=== PATIENT | male | born 1950 | race Caucasian/White ===

== ENCOUNTER 2017-06-24 17:26 | Observation (INO) | payer OTHER ==
[~2017-06-24] VITALS: Ht 188 cm; Wt 123.2 kg
--- NOTE | 2017-06-24 17:51 | EMERGENCY ROOM VISIT NOTE ---
History Report prepared by Rosemarie: Channing La Under the Supervision of: Dr. Gogo Barnes M.D. First contact with patient: 17:33 Chief Complaint: CHEST PAIN Stated Complaint: CHEST PAIN History of Present Illness The patient is a 67 year old medicated diabetic male who presents to the Emergency Room via EMS with complaints of persistent chest pain that started prior to arrival this evening. He says that he was driving to [place] from [place] when he suddenly started having chest pain, feeling as if someone had kicked him in the chest. He states that the pain progressively worsened, so he had to char puller and call an ambulance. He says that he was given 4 baby aspirin in the ambulance. The patient currently as a 5 out of 10 in severity. He denies any radiation of the chest pain. He also denies any sweating, nausea, or leg swelling. The patient adds that it does not hurt when taking a deep breath, and he has not had any recent trouble with exertion. He notes that he has never had anything like this before. The patient says that he has not had any recent illnesses. He states that he had a stress test a year ago. The patient adds that he drove from [place] and back recently. He takes a baby aspirin every night. He notes that he is a non-smoker, and has no personal history of heart problems or blood clots. He is not on any blood thinners. Source of History: patient Onset: Prior to arrival this evening Position: chest Symptom Intensity: 5/10 Quality: other (as if someone kicked him in chest) Associated Symptoms: No diaphoresis, No nausea Note: Associated symptoms: Denies any radiation of pain or leg swelling. Does not hurt to take a deep breath. Review of Systems See HPI for pertinent positives & negatives. A total of 10 systems reviewed and were otherwise negative. Past Medical & Surgical Medical Problems: (1) Lopez esophagus (2) Bipolar 1 disorder (3) Chest pain (4) Diabetes (5) GERD (gastroesophageal reflux disease) (6) HLD (hyperlipidemia) (7) HTN (hypertension) (8) BOY (obstructive sleep apnea) (9) Other chest pain (10) Renal calculi Surgical Problems: (1) H/O lithotripsy (2) History of total left knee replacement (3) History of total right knee replacement (4) History of vasectomy (5) Hx of cholecystectomy (6) S/P cystouretoscopy Family History Unobtainable family history due to adoption Social History Smoking Status: Never Smoker Smokeless Tobacco Use: No Marital Status: Housing Status: lives with family Current/Historical Medications Scheduled Aripiprazole (Abilify), 30 MG PO QAM Aspirin (Aspirin Ec), 81 MG PO DAILY Atorvastatin (Lipitor), 10 MG PO QPM Canagliflozin (Invokana), 100 MG PO QAM Cholecalciferol (Vitamin D3), 2,000 INTER.UNIT PO QAM Cinnamon (Cinnamon), 1,000 MG PO QAM Coenzyme Q10 (Ubidecarenone) (Co Q-10), 200 MG PO QAM Esomeprazole Magnesium (Nexium), 40 MG PO QAM Fenofibrate (Tricor ), 145 MG PO DAILY Insulin Glulisine (Apidra Solostar), 1 DOSE SC AC Lamotrigine (Lamictal), 200 MG PO QAM Liraglutide (Victoza), 1.8 ML SC QPM Magnesium Oxide (Mg Supplement (Magnesium Oxide), 400 MG PO QAM Metformin Hcl (Glucophage), 1,000 MG PO BID Multivitamin (Multivitamin), 1 TAB PO DAILY Psyllium (Fiber), 0.52 GM PO QAM Quinapril Hcl (Accupril), 10 MG PO QAM Venlafaxine Hcl (Effexor Extended Rel), 300 MG PO QPM Scheduled PRN Amoxicillin (Amoxil), 500 MG PO UD PRN for Dental Work Scopolamine (Transderm-Scop), 3 MG TD Q72H PRN for Travel Zolmitriptan (Zomig), 2.5 MG PO UD PRN for Migraine Zolpidem Tartrate (Ambien), 10 MG PO HS PRN for Sleep Allergies Coded Allergies: Iodine (Verified Allergy, Severe, Difficulty breathing, accelerated heart rate and tremors, 06/24/17) Dye Nalbuphine (Verified Allergy, Severe, Loss of blood pressure and convulsions, 06/24/17) Codeine (Verified Allergy, Unknown, Severe nausea and vomiting, 06/24/17) Hylan G-F 20 (Verified Allergy, Unknown, Swelling and pain, 06/24/17) Meperidine (Verified Allergy, Unknown, Severe nausea,vomiting and tremors , 06/24/17) Morphine (Verified Allergy, Unknown, Severe nausea and vomiting, 06/24/17) NSAIDs (Verified Allergy, Unknown, Chronic kidney disease, 06/24/17) Neomycin (Verified Allergy, Unknown, Skin rash and inflammation, 06/24/17) Physical Exam Vital Signs Date Time Temp Pulse Resp B/P (MAP) Pulse Ox O2 Delivery O2 Flow Rate FiO2 06/24/17 19:49 Room Air 06/24/17 18:40 68 18 124/83 99 Room Air 06/24/17 18:30 74 18 124/79 99 Room Air 06/24/17 18:23 68 18 124/79 95 Room Air 06/24/17 17:35 97 Room Air 06/24/17 17:33 67 06/24/17 17:30 97 Room Air 06/24/17 17:30 36.5 67 18 143/95 97 Room Air Physical Exam Vital signs reviewed. General: Well-appearing 67 year old male, in no significant distress. HEENT: No scleral icterus, PERRLA, neck supple. Atraumatic. Cardiovascular: Regular rate and rhythm, no extra sounds. Pulmonary: Clear to auscultation bilaterally, normal work of breathing. Abdomen: Soft, obese, nontender, nondistended, positive bowel sounds. Musculoskeletal: Atraumatic, no peripheral edema. Neurologic: Patient awake alert and oriented x 3, full strength in all 4 extremities. Cranial nerves 2 through 12 grossly intact. Skin: Warm, dry, no rash Medical Decision & Procedures ER Provider Diagnostic Interpretation: X-ray results as stated below per interpretation by me and the radiologist: CHEST ONE VIEW PORTABLE CLINICAL HISTORY: Chest pain. COMPARISON STUDY: No previous studies for comparison. FINDINGS: Note is made of lordotic positioning on this exam. There is moderate elevation/eventration of the right hemidiaphragm. Linear left basilar opacity is suggestive of atelectasis. There is no consolidation to suggest pneumonia. Pulmonary vascularity is normal. Cardiomediastinal silhouette is normal. Suspected calcified AP window lymph node is noted. IMPRESSION: 1. No acute cardiopulmonary findings. 2. Moderate elevation/eventration of the right hemidiaphragm. Electronically signed by: Joseph Prabhakar M.D. 06/24/2017 6:15 PM Dictated Date/Time: 06/24/2017 6:14 PM Laboratory Results 06/24/17 17:09 06/24/17 18:48 Test 06/24/17 17:09 06/24/17 17:54 06/24/17 18:48 Anion Gap 9.0 mmol/L (3-11) Est Creatinine Clear Calc Drug Dose 79.4 ml/min Estimated GFR () 67.1 Estimated GFR (Non- 57.9 BUN/Creatinine Ratio 19.9 (10-20) Calcium Level 9.2 mg/dl (8.5-10.1) Total Bilirubin 0.4 mg/dl (0.2-1) Alanine Aminotransferase (ALT/SGPT) 47 U/L (12-78) Alkaline Phosphatase 62 U/L (45-117) Creatine Kinase MB 11.4 ng/ml (0.5-3.6) Creatine Kinase MB Ratio (0-3.0) Total Protein 8.2 gm/dl (6.4-8.2) Albumin 4.1 gm/dl (3.4-5.0) Lipase 319 U/L (73-393) Bedside Troponin I < 0.030 ng/ml (0-0.045) Activated Partial Thromboplast Time 30.6 SECONDS (21.0-31.0) Partial Thromboplastin Ratio 1.2 Direct Bilirubin < 0.1 mg/dl (0-0.2) Aspartate Amino Transf (AST/SGOT) 34 U/L (15-37) Laboratory results per my review. Medications Administered Medications (Trade) Dose Ordered Sig/Perla Route Start Time Stop Time Status Last Admin Dose Admin Nitroglycerin (Nitrostat Tab) 0.4 mg Q5M PRN SL 06/24/17 17:45 06/24/17 21:37 DC 06/24/17 18:40 0.4 MG ECG Indication: chest pain Rate (beats per minute): 66 Rhythm: normal sinus Findings: no ectopy, other (poor quality baseline for interpretation, T-wave flattening in inferior leads) ED Course 1739: Past medical records reviewed. The patient was evaluated in room C12B. A complete history and physical examination was performed. 1744: Ordered Nitrostat Tab 0.4 mg SL PRN. 1911: I discussed the patient with Kalani Jones - she will evaluate the patient for further treatment. 1914: Upon reevaluation, the patient is resting comfortably. I discussed laboratory and radiographic results with him. He verbalized agreement of the treatment plan. The patient will be evaluated for further management and care. Medical Decision Differential diagnosis: Acute coronary syndrome, pulmonary embolus, aortic dissection, musculoskeletal pain, pneumonia, pleural effusion, pneumothorax This patient was evaluated and appeared to be in no significant distress. IV access was obtained and laboratory work was drawn. Patient was placed on the production checker and found to be in a normal sinus rhythm. He was given aspirin en route. Patient was given a nitroglycerin trial with minimal improvement. Chest x-ray was performed and is negative for acute infiltrate or failure. EKG reveals nonspecific T wave flattening. Cardiac enzymes are normal. Given the patient's history of hypertension, hypercholesterolemia and diabetes, the patient will be evaluated by the hospitalist service for further management. Patient and family are aware of the plan and agree. Medication Reconcilliation Current Medication List: was personally reviewed by me Blood Pressure Screening Patient's blood pressure: Elevated blood pressure Referred to hospitalist. Consults Time Called: 1909 Consulting Physician: Kalani Jones Returned Call: 1911 I discussed the patient with Kalani Jones - she will evaluate the patient for further treatment. Impression Primary Impression: Substernal chest pain Scribe Attestation The scribe's documentation has been prepared under my direction and personally reviewed by me in its entirety. I confirm that the note above accurately reflects all work, treatment, procedures, and medical decision making performed by me. Departure Information Dispostion Being Evaluated By Hospitalist Patient Instructions My [facility]
[2017-06-24 17:57] LABS: BASO % 0.2 %; BASO ABS # 0.02 K/uL (0-0.2); COMPLETE YES; EOS % 1.6 %; HEMATOCRIT 43.8 % (42-52); IG% 0.3 %; LYMPH % 28.8 %; LYMPH ABS # 2.66 K/uL (1.2-3.4); MEAN CELL VOLUME 89.4 fL (80-100); MEAN CORPUSCULAR HEMOGLOBIN 30.6 pg (25-34); MEAN CORPUSCULAR HGB CONC 34.2 g/dl (32-36); MEAN PLATELET VOLUME 10.2 fL (7.4-10.4); MONO % 6.9 %; NEUT % 62.2 %; PLATELET COUNT 215 K/uL (130-400); WHITE BLOOD COUNT 9.23 K/uL (4.8-10.8)
[2017-06-24] MEDS ORDERED: LIRA18IN SC (18:14)
[2017-06-24] MEDS ORDERED: ARIP30TA3 PO (18:14)
[2017-06-24] MEDS ORDERED: ASPI81TA28 PO (18:14)
[2017-06-24] MEDS ORDERED: AMOX500C3 PO (18:14)
[2017-06-24] MEDS ORDERED: FENO145T26 PO (18:14)
[2017-06-24] MEDS ORDERED: METF-384 PO (18:14)
[2017-06-24] MEDS ORDERED: PSYL1CAP4 PO (18:14)
[2017-06-24] MEDS ORDERED: LAMO200T38 PO (18:14)
[2017-06-24] MEDS ORDERED: MAGN1TAB19 PO (18:14)
[2017-06-24] MEDS ORDERED: NXM/40 PO (18:14)
[2017-06-24] MEDS ORDERED: ZOLP10TA PO (18:14)
[2017-06-24] MEDS ORDERED: APDI SC (18:14)
[2017-06-24] MEDS ORDERED: CANA1TAB PO (18:14)
[2017-06-24] MEDS ORDERED: ATOR10TA88 PO (18:14)
[2017-06-24] MEDS ORDERED: [UNRECOGNIZED DRUG - CODE] PO (18:14)
[2017-06-24] MEDS ORDERED: COEN1CAP37 PO (18:14)
[2017-06-24] MEDS ORDERED: QUIN10TA25 PO (18:14)
[2017-06-24] MEDS ORDERED: SCOP1DIS14 TD (18:14)
[2017-06-24] MEDS ORDERED: VENL150C56 PO (18:14)
[2017-06-24] MEDS ORDERED: CINN500T PO (18:14)
[2017-06-24] MEDS ORDERED: CHOL2000 PO (18:14)
[2017-06-24] MEDS ORDERED: MULT-506 PO (18:14)
--- NOTE | 2017-06-24 18:17 | DIAGNOSTIC IMAGING REPORT ---
CHEST ONE VIEW PORTABLE CLINICAL HISTORY: Chest pain. COMPARISON STUDY: No previous studies for comparison. FINDINGS: Note is made of lordotic positioning on this exam. There is moderate elevation/eventration of the right hemidiaphragm. Linear left basilar opacity is suggestive of atelectasis. There is no consolidation to suggest pneumonia. Pulmonary vascularity is normal. Cardiomediastinal silhouette is normal. Suspected calcified AP window lymph node is noted. IMPRESSION: 1. No acute cardiopulmonary findings. 2. Moderate elevation/eventration of the right hemidiaphragm. Electronically signed by: Joseph Prabhakar M.D. 06/24/2017 6:15 PM Dictated Date/Time: 06/24/2017 6:14 PM
[2017-06-24] MEDS: NITROGLYCERIN 0.4 MG SL PER TAB CHARGE SL PRN ×2 (18:30→18:40)
[2017-06-24 18:33] LABS: ALKALINE PHOSPHATASE 62 U/L (45-117); ALT/SGPT 47 U/L (12-78); BLOOD UREA NITROGEN 25 mg/dl (7-18); BUN/CREATININE RATIO 19.9 (10-20); CALCIUM 9.2 mg/dl (8.5-10.1); CARBON DIOXIDE 26 mmol/L (21-32); CHLORIDE 104 mmol/L (98-107); CREATININE 1.28 mg/dl (0.60-1.40); GLUCOSE 83 mg/dl (70-99); SODIUM 139 mmol/L (136-145)
[2017-06-24 19:36] LABS: POTASSIUM 4.2 mmol/L (3.5-5.1)
[2017-06-24 19:44] LABS: AST/SGOT 34 U/L (15-37); MAGNESIUM 1.4 mg/dl (1.8-2.4)
[2017-06-24 19:49] VITALS: Ht 188 cm; Wt 123.2 kg
[2017-06-24 20:19] LABS: PARTIAL THROMBOPLASTIN RATIO 1.2
[2017-06-24] MEDS ORDERED: TRAMADOL HCL 50 MG TAB PO ONE (20:43)
[2017-06-24] MEDS ORDERED: ACETAMINOPHEN 325 MG TAB PO PRN (20:45)
[2017-06-24] MEDS ORDERED: DEXTROSE 50% 50 ML SYR IV PRN (20:45)
[2017-06-24] MEDS ORDERED: TRAMADOL HCL 50 MG TAB PO PRN (20:45)
[2017-06-24] MEDS ORDERED: ZOLPIDEM TARTRATE 10 MG TAB PO PRN (20:45)
[2017-06-24] MEDS ORDERED: HYDROmorphone INJ 0.5 MG/0.5 ML SYR IV PRN (20:45)
[2017-06-24] MEDS ORDERED: ONDANSETRON INJ 2 MG/ML 2 ML VIAL IV PRN (20:45)
[2017-06-24] MEDS ORDERED: GLUCOSE 10 TABS/TUBE PO PRN (20:45)
[2017-06-24] MEDS ORDERED: GLUCAGON FOR INJ 1 MG VIAL SQ PRN (20:45)
[2017-06-24] MEDS ORDERED: LORAZEPAM 2 MG/ML 1 ML VIAL IV PRN (20:45)
[2017-06-24] MEDS ORDERED: GLUCOSE 40% GEL 15 GM TUBE PO PRN (20:45)
[2017-06-24] MEDS ORDERED: ATORVASTATIN 10 MG TAB PO SCH (21:00)
[2017-06-24] MEDS ORDERED: NURSING DECISION MEDICATION ORDER SCH (21:00)
[2017-06-24] MEDS ORDERED: VENLAFAXINE HCL XR 150 MG CAPXR PO SCH (21:00)
--- NOTE | 2017-06-24 21:06 | History and Physical ---
History & Physical Date & Time of Service: Jun 24, 2017 ~ 19:30 Chief Complaint: Chest Pain Primary Care Physician: Susan Malik D.O. History of Present Illness 67 year old male who presents to the ED with chest pain. Patient reports he was driving when he had a sudden onset of midsternal chest pain that favored the right side. He reports the pain was moderately severe rating it # 5/10. He reports the pain persisted so he pulled over and called for EMS. Patient denies any associated shortness of breath, diaphoresis, nausea, palpitations, or lightheadedness. He has received two SL nitro in the ED and the pain is unchanged. He reports he has been feeling well recently. He does report two somewhat lengthy car rides last week. He denies abdominal pain, vomiting, or diarrhea. No fevers or chills. He denies urinary symptoms. In the ED, patient's initial troponin is negative and EKG does not show any acute ST changes. He was given 4 baby ASA by EMS and has been given 2 SL nitro in the ED. Past Medical/Surgical History Medical Problems: (1) Lopez esophagus Status: Chronic (2) Bipolar 1 disorder Status: Chronic (3) Diabetes Status: Chronic (4) GERD (gastroesophageal reflux disease) Status: Chronic (5) HLD (hyperlipidemia) Status: Chronic (6) HTN (hypertension) Status: Chronic (7) BOY (obstructive sleep apnea) Status: Chronic (8) Renal calculi Status: Chronic Surgical Problems: (1) H/O lithotripsy Status: Chronic (2) History of total left knee replacement Status: Chronic (3) History of total right knee replacement Status: Chronic (4) History of vasectomy Status: Chronic (5) Hx of cholecystectomy Status: Chronic (6) S/P cystouretoscopy Status: Chronic Family History Unobtainable family history due to adoption Social History Smoking Status: Never Smoker Alcohol Use: none Marital Status: Housing status: lives with family Occupational Status: retired Allergies Coded Allergies: Iodine (Verified Allergy, Severe, Difficulty breathing, accelerated heart rate and tremors, 06/24/17) Dye Nalbuphine (Verified Allergy, Severe, Loss of blood pressure and convulsions, 06/24/17) Codeine (Verified Allergy, Unknown, Severe nausea and vomiting, 06/24/17) Hylan G-F 20 (Verified Allergy, Unknown, Swelling and pain, 06/24/17) Meperidine (Verified Allergy, Unknown, Severe nausea,vomiting and tremors , 06/24/17) Morphine (Verified Allergy, Unknown, Severe nausea and vomiting, 06/24/17) NSAIDs (Verified Allergy, Unknown, Chronic kidney disease, 06/24/17) Neomycin (Verified Allergy, Unknown, Skin rash and inflammation, 06/24/17) Home Medications Scheduled Aripiprazole (Abilify), 30 MG PO QAM Aspirin (Aspirin Ec), 81 MG PO DAILY Atorvastatin (Lipitor), 10 MG PO QPM Canagliflozin (Invokana), 100 MG PO QAM Cholecalciferol (Vitamin D3), 2,000 INTER.UNIT PO QAM Cinnamon (Cinnamon), 1,000 MG PO QAM Coenzyme Q10 (Ubidecarenone) (Co Q-10), 200 MG PO QAM Esomeprazole Magnesium (Nexium), 40 MG PO QAM Fenofibrate (Tricor ), 145 MG PO DAILY Insulin Glulisine (Apidra Solostar), 1 DOSE SC AC Lamotrigine (Lamictal), 200 MG PO QAM Liraglutide (Victoza), 1.8 ML SC QPM Magnesium Oxide (Mg Supplement (Magnesium Oxide), 400 MG PO QAM Metformin Hcl (Glucophage), 1,000 MG PO BID Multivitamin (Multivitamin), 1 TAB PO DAILY Psyllium (Fiber), 0.52 GM PO QAM Quinapril Hcl (Accupril), 10 MG PO QAM Venlafaxine Hcl (Effexor Extended Rel), 300 MG PO QPM Scheduled PRN Amoxicillin (Amoxil), 500 MG PO UD PRN for Dental Work Scopolamine (Transderm-Scop), 3 MG TD Q72H PRN for Travel Zolmitriptan (Zomig), 2.5 MG PO UD PRN for Migraine Zolpidem Tartrate (Ambien), 10 MG PO HS PRN for Sleep Review of Systems ROS per HPI, all other systems reviewed and negative Physical Exam Vital Signs Date Time Temp Pulse Resp B/P (MAP) Pulse Ox O2 Delivery O2 Flow Rate FiO2 06/24/17 19:49 Room Air 06/24/17 18:40 68 18 124/83 99 Room Air 06/24/17 18:30 74 18 124/79 99 Room Air 06/24/17 18:23 68 18 124/79 95 Room Air 06/24/17 17:35 97 Room Air 06/24/17 17:33 67 06/24/17 17:30 97 Room Air 06/24/17 17:30 36.5 67 18 143/95 97 Room Air General Appearance: no apparent distress, + obese Head: normocephalic, atraumatic Eyes: normal inspection, EOMI, sclerae normal ENT: hearing grossly normal, + pertinent finding (moist mucous membranes) Neck: supple, no JVD, trachea midline Respiratory/Chest: lungs clear, normal breath sounds, no respiratory distress, + pertinent finding (tenderness along the right side of the sternum at ribs 3/4 ) Cardiovascular: regular rate, rhythm, no edema, normal peripheral pulses Abdomen/GI: normal bowel sounds, non tender, soft, no organomegaly Extremities/Musculoskelatal: normal inspection, no calf tenderness, normal capillary refill Neurologic/Psych: no motor/sensory deficits, alert, normal mood/affect, oriented x 3 Skin: normal color, warm/dry Diagnostics Laboratory Results Results Past 24 Hours Test 06/24/17 17:09 06/24/17 17:54 06/24/17 18:48 06/24/17 19:49 Range/Units White Blood Count 9.23 4.8-10.8 K/uL Red Blood Count 4.90 4.7-6.1 M/uL Hemoglobin 15.0 14.0-18.0 g/dL Hematocrit 43.8 42-52 % Mean Corpuscular Volume 89.4 80-100 fL Mean Corpuscular Hemoglobin 30.6 25-34 pg Mean Corpuscular Hemoglobin Concent 34.2 32-36 g/dl Platelet Count 215 130-400 K/uL Mean Platelet Volume 10.2 7.4-10.4 fL Neutrophils (%) (Auto) 62.2 % Lymphocytes (%) (Auto) 28.8 % Monocytes (%) (Auto) 6.9 % Eosinophils (%) (Auto) 1.6 % Basophils (%) (Auto) 0.2 % Neutrophils # (Auto) 5.73 1.4-6.5 K/uL Lymphocytes # (Auto) 2.66 1.2-3.4 K/uL Monocytes # (Auto) 0.64 0.11-0.59 K/uL Eosinophils # (Auto) 0.15 0-0.5 K/uL Basophils # (Auto) 0.02 0-0.2 K/uL RDW Standard Deviation 43.0 36.4-46.3 fL RDW Coefficient of Variation 13.1 11.5-14.5 % Immature Granulocyte % (Auto) 0.3 % Immature Granulocyte # (Auto) 0.03 0.00-0.02 K/uL Sodium Level 139 136-145 mmol/L Potassium Level 4.2 3.5-5.1 mmol/L Chloride Level 104 98-107 mmol/L Carbon Dioxide Level 26 21-32 mmol/L Anion Gap 9.0 3-11 mmol/L Blood Urea Nitrogen 25 7-18 mg/dl Creatinine 1.28 0.60-1.40 mg/dl Est Creatinine Clear Calc Drug Dose 79.4 ml/min Estimated GFR () 67.1 Estimated GFR (Non- 57.9 BUN/Creatinine Ratio 19.9 10-20 Random Glucose 83 70-99 mg/dl Calcium Level 9.2 8.5-10.1 mg/dl Magnesium Level 1.4 1.8-2.4 mg/dl Total Bilirubin 0.4 0.2-1 mg/dl Direct Bilirubin < 0.1 0-0.2 mg/dl Aspartate Amino Transf (AST/SGOT) 34 15-37 U/L Alanine Aminotransferase (ALT/SGPT) 47 12-78 U/L Alkaline Phosphatase 62 45-117 U/L Total Creatine Kinase 682 39-308 U/L Creatine Kinase MB 11.4 0.5-3.6 ng/ml Creatine Kinase MB Ratio 0-3.0 Total Protein 8.2 6.4-8.2 gm/dl Albumin 4.1 3.4-5.0 gm/dl Lipase 319 73-393 U/L Bedside Troponin I < 0.030 0-0.045 ng/ml Test 06/24/17 19:55 Range/Units Diagnostic Radiology CXR IMPRESSION: 1. No acute cardiopulmonary findings. 2. Moderate elevation/eventration of the right hemidiaphragm. Impression Assessment and Plan CHEST PAIN - admit to tele - patient presenting with sudden onset of midsternal chest pain that favored the right side; in the ED, pain was unchanged with nitro - initial troponin and CKMB negative and EKG without acute ST changes; D. Dimer negative - pain seems to be musculoskeletal in nature, ? costochondritis; however patient does have risk factors for CAD: HTN, DM, HLD, obesity - continue to cycle cardiac enzymes - PRN nitro and EKG with further chest pain - continue ASA and statin DM - per patient, A1C 9.2 02/2017 - hold oral agents and Victoza while hospitalized; will utilize SSI HTN - BP controlled, continue quinapril HLD - continue statin and fenofibrate GERD - continue PPI BIPOLAR - continue home meds - Abilify, Lamictal, and Effexor BOY - CPAP as per home settings DVT PROPHYLAXIS - SQ Lovenox DISPO - The patient will be placed as observation status for now until further work up is complete. Please see Dr. Lerma's addendum for further assessment and plan. Advanced Directives Existing Living Will: Yes Existing Power of Curtain Supervisor: Yes VTE Prophylaxis VTE Risk Assessment Done? Y/N: Yes Risk Level: Moderate Assessment/Plan IM ATTENDING : Patient seen and examined. History obtained from patient and records. Preceding documentation by TERESITA Schwartz reviewed. In addition, d-dimer was normal. FINAL ASSESSMENT AND PLAN as follows : 1. Atypical chest pain likely musculoskeletal with reproducible tenderness 2. Hypertension, stable 3. DM2, insulin requiring, suboptimal control as of recent outpatient hemoglobin A1c as per patient 4. hyperlipidemia on statin therapy. Observation. PCU Exercise stress test in the morning if next troponin normal. Basal insulin, ISS BG goal 140-180. Carb count coverage indicated for suboptimal blood sugar control. DVT prophylaxis with Lovenox subQ. Full code.
[2017-06-24 21:11] VITALS: BP 119/70; PULSE 74; TEMP 36.8; O2SAT 93
[2017-06-24] MEDS ORDERED: SODIUM CHLORIDE 0.9% 1000ML 1,000 ML IV SCH (21:30)
[2017-06-24] MEDS: MAGNESIUM SULFATE 1GM / D5W 1 GM in PREMIXED IN D5W 100 ML IV SCH ×2 (21:52→23:49)
[2017-06-24] MEDS: INSULIN ASPART 100 UNITS/ML 3 ML PEN SC SCH (21:57)
[2017-06-24 22:09] LABS: PROTHROMBIN TIME (PATIENT) 10.9 SECONDS (9.0-12.0)
[2017-06-24 23:00] VITALS: BP 127/64; PULSE 62; TEMP 36.7; O2SAT 95
[2017-06-24] MEDS ORDERED: IV FLUIDS COMPLETED PRN (23:30)
[2017-06-25 00:05] VITALS: O2SAT 98
[2017-06-25 04:05] VITALS: O2SAT 98
[2017-06-25 04:27] LABS: BASO % 0.1 %; BASO ABS # 0.01 K/uL (0-0.2); COMPLETE YES; EOS % 1.9 %; HEMATOCRIT 42.9 % (42-52); IG% 0.3 %; LYMPH % 33.5 %; LYMPH ABS # 2.62 K/uL (1.2-3.4); MEAN CELL VOLUME 89.7 fL (80-100); MEAN CORPUSCULAR HEMOGLOBIN 30.3 pg (25-34); MEAN CORPUSCULAR HGB CONC 33.8 g/dl (32-36); MEAN PLATELET VOLUME 9.4 fL (7.4-10.4); MONO % 6.4 %; NEUT % 57.8 %; PLATELET COUNT 174 K/uL (130-400); RED BLOOD COUNT 4.78 M/uL (4.7-6.1); WHITE BLOOD COUNT 7.81 K/uL (4.8-10.8)
[2017-06-25 04:39] VITALS: BP 128/77; PULSE 63; TEMP 36.5; O2SAT 95
[2017-06-25 04:51] LABS: MAGNESIUM 1.8 mg/dl (1.8-2.4)
[2017-06-25] MEDS: INSULIN ASPART 100 UNITS/ML 3 ML PEN SC SCH (06:00)
--- NOTE | 2017-06-25 07:01 | HISTORY & PHYSICAL EXAMINATION ---
DATE OF ADMISSION: 06/24/2017 IM ATTENDING : Patient seen and examined. History obtained from patient and records. Preceding documentation by TERESITA Schwartz reviewed. In addition, d-dimer was normal. FINAL ASSESSMENT AND PLAN as follows : 1. Atypical chest pain likely musculoskeletal with reproducible tenderness 2. Hypertension, stable 3. DM2, insulin requiring, suboptimal control as of recent outpatient hemoglobin A1c as per patient 4. hyperlipidemia on statin therapy. Observation. PCU Exercise stress test in the morning if next troponin normal. Basal insulin, ISS BG goal 140-180. Carb count coverage indicated for suboptimal blood sugar control. DVT prophylaxis with Lovenox subQ. Full code. MTDD
[2017-06-25 07:12] VITALS: BP 134/87; PULSE 67; TEMP 36.6; O2SAT 94
[2017-06-25] MEDS ORDERED: ASPIRIN 81 MG ECTAB PO SCH (09:00)
[2017-06-25] MEDS ORDERED: FENOFIBRATE 145 MG TAB PO SCH (09:00)
[2017-06-25] MEDS ORDERED: MULTIVITAMIN TAB PO SCH (09:00)
[2017-06-25] MEDS ORDERED: ARIPIprazole TAB 15 MG TAB PO SCH (09:00)
[2017-06-25] MEDS ORDERED: ENOXAPARIN 40 MG/0.4 ML SYR SC SCH (09:00)
[2017-06-25] MEDS ORDERED: ENALAPRIL MALEATE 10 MG TAB PO SCH (09:00)
[2017-06-25] MEDS ORDERED: INSULIN ASPART 100 UNITS/ML 3 ML PEN SC SCH (11:00)
[2017-06-25] MEDS ORDERED: NURSING VERBAL MED ORDER ONE ×2 (11:15→12:00)
[2017-06-25 11:16] VITALS: BP 121/76; PULSE 77; TEMP 36.7; O2SAT 96
--- NOTE | 2017-06-25 13:25 | Discharge Instructions ---
Discharge Instructions Date of Service Jun 25, 2017. Admission Reason for Admission: Other Chest Pain Discharge Discharge Diagnosis / Problem: ATYPICAL CHEST PAIN /NEGATIVE CARDIAC STRESS TEST Discharge Goals Goal(s): Improve disease control, Diagnostic testing, Therapeutic intervention Activity Recommendations Activity Limitations: resume your previous activity Driving or Machine Use: no limitations . Instructions / Follow-Up Instructions / Follow-Up FOLLOW UP WITH FAMILY PHYSICIAN IN A WEEK Current Hospital Diet Patient's current hospital diet: Diabetes Type 2 Diet, AHA Diet (Heart Healthy) Discharge Diet Recommended Diet: AHA Diet (Heart Healthy) Pending Studies Studies pending at discharge: no Medical Emergencies . Who to Call and When: Medical Emergencies: If at any time you feel your situation is an emergency, please call 911 immediately. . Non-Emergent Contact Non-Emergency issues call your: Primary Care Provider . . "Provider Documentation" section prepared by Maureen Casey. . VTE Core Measure Inpt VTE Proph given/why not?: Reggie Toribio, SCD's
[2017-06-25 14:50] VITALS: BP 121/76; PULSE 77; TEMP 36.7; O2SAT 96
--- NOTE | 2017-06-25 15:01 | EXERCISE STRESS ECHO ---
*NOTICE TO RECEIVING CONSTITUTION PARTY AGENCY This information is strictly Confidential and protected under [place] law. [place] law prohibits you from making any further disclosure of this information unless further disclosure is expressly permitted by the written consent of the person to whom it pertains or is authorized by law. A general authorization for the release of medical or other information is not sufficient for this purpose. Hospital accepts no responsibility if the information is made available to any other person, INCLUDING THE PATIENT. Interpretation Summary * Name: CLOVIS AREVALO Study Date: 06/25/2017 08:31 AM BP: 129/90 mmHg * Patient Location: [facility]\S\N278\S\2 HR: 68 * : 1950 (M/d/yyyy) Gender: Male Height: 74 in * Age: 67 yrs Ethnicity: [place] Weight: 273 lb * Ordering Physician: Allan Lerma * Referring Physician: Self, Referred * Performed By: Lara Moreno RCS * * Reason For Study: Chest Pain * BSA: 2.5 m2 * STRESS STUDY: Normal exercise stress echocardiogram. No echocardiographic or ECG evidence of myocardial ischemia having achieved heart rate adequate for diagnostic purposes. * -- Conclusions -- * STRESS STUDY: Normal exercise stress echocardiogram. No echocardiographic or ECG evidence of myocardial ischemia having achieved heart rate adequate for diagnostic purposes. Procedure Details * ECHOEX, CPT #[id number] * ECHO COLOR FLOW, CPT #[id number] * ECHO DOPPLER, CPT #[id number] Left Ventricle * The left ventricle is normal in size. * There is borderline concentric left ventricular hypertrophy. * Ejection Fraction = 55-60%. * Left ventricular systolic function is normal. * The left ventricular wall motion is normal at rest. Right Ventricle * The right ventricle is normal size. * The right ventricular systolic function is normal. Atria * The left atrial size is normal. * Right atrial size is normal. * There is no evidence of atrial septal defect, but resolution does not allow assessment for a patent foramen ovale. Mitral Valve * The mitral valve anatomy is normal. * Significant mitral regurgitation is absent. Tricuspid Valve * The tricuspid valve anatomy is normal. * Significant tricuspid regurgitation is absent. Aortic Valve * The aortic valve is tricuspid. The leaflet thickness if normal. There is no aortic stenosis, and no significant insufficiency. * Aortic stenosis is absent. * There is no significant aortic regurgitation. Pulmonic Valve * The pulmonic valve is not well visualized. Great Vessels * The aortic root and proximal ascending aorta are normal sized. Pericardium * There is no pericardial effusion. Stress Parameters * Baseline ECG was essentially normal. No symptoms were noted. * The stress ECG response was normal * Stress ECG: No ST changes. No arrhythmias. * The stress portion of this study was personally supervised by the undersigned interpreting physician. * Rest heart rate was '68' BPM. * Rest blood pressure was '129/90' * Maximum heart rate achieved was 137 bpm. * Maximum heart rate was 88 % of maximum age-predicted heart rate. * Maximum blood pressure was '225/79' * Total exercise time was '5:47' * Maximum exercise MET level achieved was '7.0' METS * Maximum treadmill speed was '2.5' miles per hour. * Maximum treadmill elevation was '12'% grade. * Exercise was terminated due to 'achieving target heart rate' MMode 2D Measurements and Calculations IVSd 1.1 cm IVSs 1.3 cm LVIDd 4.3 cm LVIDs 2.7 cm LVPWd 1.0 cm LVPWs 1.3 cm IVS/LVPW 1.1 FS 37.6 % EDV(Teich) 83.6 ml ESV(Teich) 26.8 ml EF(Teich) 68.0 % EDV(cubed) 80.1 ml ESV(cubed) 19.5 ml EF(cubed) 75.7 % % IVS thick 11.3 % % LVPW thick 20.2 % LV mass(C)d 161.9 grams LV mass(C)dI 65.3 grams/m\S\2 LV mass(C)s 102.3 grams LV mass(C)sI 41.2 grams/m\S\2 SV(Teich) 56.8 ml SI(Teich) 22.9 ml/m\S\2 SV(cubed) 60.7 ml SI(cubed) 24.5 ml/m\S\2 Ao root diam 4.4 cm Ao root area 15.2 cm\S\2 ACS 1.7 cm LA dimension 3.5 cm asc Aorta Diam 3.3 cm LA/Ao 0.80 EDV(MOD-sp4) 85.0 ml ESV(MOD-sp4) 42.0 ml EF(MOD-sp4) 50.6 % EDV(MOD-sp2) 103.0 ml ESV(MOD-sp2) 48.0 ml EF(MOD-sp2) 53.4 % SV(MOD-sp4) 43.0 ml SI(MOD-sp4) 17.3 ml/m\S\2 SV(MOD-sp2) 55.0 ml SI(MOD-sp2) 22.2 ml/m\S\2 Doppler Measurements and Calculations MV E max jaqueline 75.5 cm/sec MV A max jaqueline 95.4 cm/sec MV E/A 0.79 MV P1/2t max jaqueline 85.0 cm/sec MV P1/2t 120.4 msec MVA(P1/2t) 1.8 cm\S\2 MV dec slope 206.7 cm/sec\S\2 MV dec time 0.25 sec Ao V2 max 116.5 cm/sec Ao max PG 5.4 mmHg Ao max PG (full) -0.14 mmHg LV V1 max PG 5.6 mmHg LV V1 max 117.9 cm/sec PA V2 max 107.0 cm/sec PA max PG 4.6 mmHg TR max jaqueline 210.8 cm/sec
--- NOTE | 2017-06-25 17:35 | Progress Note ---
Internal Med Progress Note Date of Service: Jun 25, 2017. Provider Documentation: SUBJECTIVE: has minimum pain 2/10 on rt chest wall -reproducible no SOB , no PEREZ returned from cardiac stress -negative for stress induced ischemia pain on rt chest wall possible due to Costochondritis -recommend over the counter NSAID's -Motrin to be taken on full stomach hot/cold compression expect spontaneous resolution in next 2-3 days stable to be discharged home today OBJECTIVE: Vital Signs-as noted below Exam: General-no sign of distress , Eyes-sclera non icteric . PERRLA/EOMI ENT-normal exam Neck-no thyromegaly , no carotid bruit , trachea midline Lungs-CTA, no wheeze or rales Heart-regular S1/S2 Abdomen-soft, non tender Extremities-no lower ext edema Neuro-AAO x3, no focal deficit Lab data as noted below. ASSESSMENT & PLAN: CHEST PAIN ; atypical for angina rt sided, reproducible on palpation cardiac stress test negative for stress induced angina possible due to Costochondritis -recommend over the counter NSAID's -Motrin to be taken on full stomach hot/cold compression expect spontaneous resolution in next 2-3 days stable to be discharged home today Family physician follow up in a week TYPE 2 DM : hold oral meds cont insulin sliding scale HTN : stable BIPOLAR MOOD DISORDER cont out meds DVT PROPHYLAXIS sub q heparin DISPOSITION discharge home today Vital Signs: Date Time Temp Pulse Resp B/P (MAP) Pulse Ox O2 Delivery O2 Flow Rate FiO2 06/25/17 14:50 36.7 77 20 96 Room Air 06/25/17 12:00 Room Air 06/25/17 11:16 36.7 77 20 121/76 (91) 96 Room Air 06/25/17 08:00 Room Air 06/25/17 07:12 36.6 67 20 134/87 (103) 94 Room Air 06/25/17 04:39 36.5 63 16 128/77 (94) 95 Room Air 06/25/17 04:05 98 Room Air 06/25/17 00:05 98 Room Air 06/24/17 23:00 36.7 62 18 127/64 (85) 95 Room Air 06/24/17 21:11 36.8 74 18 119/70 (86) 93 Room Air 06/24/17 20:19 84 18 120/79 98 Room Air 06/24/17 19:49 Room Air 06/24/17 18:40 68 18 124/83 99 Room Air 06/24/17 18:30 74 18 124/79 99 Room Air 06/24/17 18:23 68 18 124/79 95 Room Air Lab Results: Results Past 24 Hours Test 06/24/17 17:54 06/24/17 18:48 06/24/17 20:03 06/24/17 21:21 Range/Units Bedside Troponin I < 0.030 0-0.045 ng/ml Activated Partial Thromboplast Time 30.6 21.0-31.0 SECONDS Partial Thromboplastin Ratio 1.2 Potassium Level 4.2 3.5-5.1 mmol/L Magnesium Level 1.4 1.8-2.4 mg/dl Direct Bilirubin < 0.1 0-0.2 mg/dl Aspartate Amino Transf (AST/SGOT) 34 15-37 U/L Total Creatine Kinase 682 673 39-308 U/L Prothrombin Time 10.9 9.0-12.0 SECONDS Prothromb Time International Ratio 1.0 0.9-1.1 D-Dimer 270 0-500 ug/L FEU Troponin I < 0.015 0-0.045 ng/ml Bedside Glucose 144 70-99 mg/dl Test 06/25/17 04:16 06/25/17 06:02 06/25/17 07:22 06/25/17 11:31 Range/Units White Blood Count 7.81 4.8-10.8 K/uL Red Blood Count 4.78 4.7-6.1 M/uL Hemoglobin 14.5 14.0-18.0 g/dL Hematocrit 42.9 42-52 % Mean Corpuscular Volume 89.7 80-100 fL Mean Corpuscular Hemoglobin 30.3 25-34 pg Mean Corpuscular Hemoglobin Concent 33.8 32-36 g/dl Platelet Count 174 130-400 K/uL Mean Platelet Volume 9.4 7.4-10.4 fL Neutrophils (%) (Auto) 57.8 % Lymphocytes (%) (Auto) 33.5 % Monocytes (%) (Auto) 6.4 % Eosinophils (%) (Auto) 1.9 % Basophils (%) (Auto) 0.1 % Neutrophils # (Auto) 4.51 1.4-6.5 K/uL Lymphocytes # (Auto) 2.62 1.2-3.4 K/uL Monocytes # (Auto) 0.50 0.11-0.59 K/uL Eosinophils # (Auto) 0.15 0-0.5 K/uL Basophils # (Auto) 0.01 0-0.2 K/uL RDW Standard Deviation 42.9 36.4-46.3 fL RDW Coefficient of Variation 13.1 11.5-14.5 % Immature Granulocyte % (Auto) 0.3 % Immature Granulocyte # (Auto) 0.02 0.00-0.02 K/uL Magnesium Level 1.8 1.8-2.4 mg/dl Troponin I < 0.015 0-0.045 ng/ml Bedside Glucose 122 121 160 70-99 mg/dl
--- NOTE | 2017-06-25 17:42 | Discharge Summary ---
Discharge Summary Date of Service Jun 25, 2017. Discharge Summary Admission Date: Jun 24, 2017 at 19:57 Discharge Date: Jun 25, 2017 Discharge Disposition: Home Principal Diagnosis: ATYPICAL CHEST PAIN /NEGATIVE CARDIAC STRESS TEST Consultations: CARDIAC STRESS TEST : The left ventricle is normal in size. There is borderline concentric left ventricular hypertrophy. Ejection Fraction = 55-60%. Left ventricular systolic function is normal. The left ventricular wall motion is normal at rest. Right Ventricle The right ventricle is normal size. The right ventricular systolic function is normal. Medication Reconciliation Continued Medications: Amoxicillin (Amoxil) 500 Mg Cap 500 MG PO UD PRN for Dental Work for 10 Days, CAP TAKE DIRECTED WHEN NEEDED FOR DENTAL PROCEDURES Aripiprazole (Abilify) 30 Mg Tab 30 MG PO QAM, TAB Aspirin (Aspirin Ec) 81 Mg Tab 81 MG PO DAILY Atorvastatin (Lipitor) 10 Mg Tab 10 MG PO QPM, TAB Canagliflozin (Invokana) 100 Mg Tab 100 MG PO QAM Cholecalciferol (Vitamin D3) 2,000 Unit Cap 2000 INTER.UNIT PO QAM, CAP Cinnamon (Cinnamon) 500 Mg Tab 1000 MG PO QAM Coenzyme Q10 (Ubidecarenone) (Co Q-10) 200 Mg Cap 200 MG PO QAM Esomeprazole Magnesium (Nexium) 40 Mg Capcr 40 MG PO QAM, CAP Fenofibrate (Tricor ) 145 Mg Tab 145 MG PO DAILY, TAB Insulin Glulisine (Apidra Solostar) 100 Units/Ml Inj 1 DOSE SC AC ADMINISTER 8 UNITS FOR EVERY 15 CARBS Lamotrigine (Lamictal) 200 Mg Tab 200 MG PO QAM, TAB Liraglutide (Victoza) 18 Mg/3 Ml Inj 1.8 ML SC QPM Magnesium Oxide (Mg Supplement (Magnesium Oxide) 400 Mg Tab 400 MG PO QAM Metformin Hcl (Glucophage) 1,000 Mg Tab 1000 MG PO BID, TAB Multivitamin (Multivitamin) Tab 1 TAB PO DAILY, TAB Psyllium (Fiber) 0.52 Gm Cap 0.52 GM PO QAM Quinapril Hcl (Accupril) 10 Mg Tab 10 MG PO QAM, TAB Scopolamine (Transderm-Scop) 1 Mg/3 Days Dis 3 MG TD Q72H PRN for Travel, PATCH Venlafaxine Hcl (Effexor Extended Rel) 150 Mg Cap 300 MG PO QPM, CAP Zolmitriptan (Zomig) 2.5 Mg Tab 2.5 MG PO UD PRN for Migraine Zolpidem Tartrate (Ambien) 10 Mg Tab 10 MG PO HS PRN for Sleep, TAB Admission Information HPI (per Admitting provider): 67 year old male who presents to the ED with chest pain. Patient reports he was driving when he had a sudden onset of midsternal chest pain that favored the right side. He reports the pain was moderately severe rating it # 5/10. He reports the pain persisted so he pulled over and called for EMS. Patient denies any associated shortness of breath, diaphoresis, nausea, palpitations, or lightheadedness. He has received two SL nitro in the ED and the pain is unchanged. He reports he has been feeling well recently. He does report two somewhat lengthy car rides last week. He denies abdominal pain, vomiting, or diarrhea. No fevers or chills. He denies urinary symptoms. In the ED, patient's initial troponin is negative and EKG does not show any acute ST changes. He was given 4 baby ASA by EMS and has been given 2 SL nitro in the ED. Physical Exam (per Admitting): General Appearance: no apparent distress, + obese Head: normocephalic, atraumatic Eyes: normal inspection, EOMI, sclerae normal ENT: hearing grossly normal, + pertinent finding (moist mucous membranes) Neck: supple, no JVD, trachea midline Respiratory/Chest: lungs clear, normal breath sounds, no respiratory distress, + pertinent finding (tenderness along the right side of the sternum at ribs 3/4 ) Cardiovascular: regular rate, rhythm, no edema, normal peripheral pulses Abdomen/GI: normal bowel sounds, non tender, soft, no organomegaly Extremities/Musculoskelatal: normal inspection, no calf tenderness, normal capillary refill Neurologic/Psych: no motor/sensory deficits, alert, normal mood/affect, oriented x 3 Skin: normal color, warm/dry Hospital Course CHEST PAIN ; atypical for angina rt sided, reproducible on palpation cardiac stress test negative for stress induced angina possible due to Costochondritis -recommend over the counter NSAID's -Motrin to be taken on full stomach hot/cold compression expect spontaneous resolution in next 2-3 days stable to be discharged home today Family physician follow up in a week TYPE 2 DM : hold oral meds cont insulin sliding scale HTN : stable BIPOLAR MOOD DISORDER cont out meds DVT PROPHYLAXIS sub q heparin DISPOSITION discharge home today Discharge Instructions Discharge Instructions Date of Service Jun 25, 2017. Admission Reason for Admission: Other Chest Pain Discharge Discharge Diagnosis / Problem: ATYPICAL CHEST PAIN /NEGATIVE CARDIAC STRESS TEST Discharge Goals Goal(s): Improve disease control, Diagnostic testing, Therapeutic intervention Activity Recommendations Activity Limitations: resume your previous activity Driving or Machine Use: no limitations . Instructions / Follow-Up Instructions / Follow-Up FOLLOW UP WITH FAMILY PHYSICIAN IN A WEEK Current Hospital Diet Patient's current hospital diet: Diabetes Type 2 Diet, AHA Diet (Heart Healthy) Discharge Diet Recommended Diet: AHA Diet (Heart Healthy) Pending Studies Studies pending at discharge: no Medical Emergencies . Who to Call and When: Medical Emergencies: If at any time you feel your situation is an emergency, please call 911 immediately. . Non-Emergent Contact Non-Emergency issues call your: Primary Care Provider . . "Provider Documentation" section prepared by Maureen Casey. . VTE Core Measure Inpt VTE Proph given/why not?: Reggie Toribio, SCD's
== END 2017-06-25 15:20 | disposition home or self-care (01) ==
LOC: C.EDC 17:28 → C.MED 19:57 → ENRESERV 20:12 → CMPBEDREQ 21:10
PROVIDERS: ADMIT Hospitalist; ATTEND Hospitalist
DX: R07.89 Other chest pain (principal); F31.9 Bipolar disorder, unspecified; E11.9 Type 2 diabetes mellitus without complications; E78.5 Hyperlipidemia, unspecified; I10 Essential (primary) hypertension; G47.33 Obstructive sleep apnea (adult) (pediatric); Z98.890 Other specified postprocedural states; Z96.653 Presence of artificial knee joint, bilateral; Z90.49 Acquired absence of other specified parts of digestive tract; Z98.52 Vasectomy status; Z79.82 Long term (current) use of aspirin; Z79.899 Other long term (current) drug therapy; Z79.4 Long term (current) use of insulin; Z88.5 Allergy status to narcotic agent